=== PATIENT | female | born 1995 | race Caucasian/White ===

== ENCOUNTER 2019-01-05 14:25 | Emergency (ER) | payer MEDICAID ==
[~2019-01-05] VITALS: Ht 152.4 cm; Wt 58.9 kg
[~2019-01-05 14:25] MED LIST: CITA10TA8 PO
[2019-01-05 15:49] LABS: BASOPHILS # (AUTO) 0.08 x10^3/uL (0-0.1); BASOPHILS % (AUTO) 1 % (0-1); EOSINOPHILS # (AUTO) 0.06 x10^3/uL (0-0.4); EOSINOPHILS % (AUTO) 1 % (1-7); LYMPHOCYTES # (AUTO) 2.89 x10^3/uL (1-3.4); LYMPHOCYTES % (AUTO) 29 % (22-44); MD NO; MEAN CORPUSCULAR HEMOGLOBIN 29.8 pg (27.0-34.8); MEAN CORPUSCULAR HGB CONC 32.9 g/dL (32.4-35.8); MEAN CORPUSCULAR VOLUME 90.6 fL (80-100); MEAN PLATELET VOLUME 8.5 fL (7.4-10.4); MONOCYTES # (AUTO) 0.52 x10^3/uL (0.2-0.8); MONOCYTES % (AUTO) 5 % (2-9); NEUTROPHILS # (AUTO) 6.45 x10^3/uL (1.8-6.8); NEUTROPHILS % (AUTO) 65 % (42-75); PLATELET COUNT 322 x10^3/uL (130-400); RED BLOOD COUNT 4.28 x10^6/uL (3.82-5.3); RED CELL DISTRIBUTION WIDTH 13.5 % (9.6-15.2)
[2019-01-05 15:58] LABS: ALANINE AMINOTRANSFERASE 15 U/L (12-78); ALBUMIN 3.2 g/dL (3.4-5.0); ANION GAP 5 mmol/L (5-15); CALCIUM 8.5 mg/dL (8.5-10.1); CHLORIDE 107 mmol/L (98-107)
[2019-01-05 16:15] LABS: ALKALINE PHOSPHATASE 60 U/L (45-117); BILIRUBIN,TOTAL 0.5 mg/dL (0.2-1.0); TOTAL PROTEIN 6.9 g/dL (6.4-8.2)
--- NOTE | 2019-01-05 17:31 | NUR ---
PT PRESENTS TO ED WITH VB AND CRAMPING, 14 WEEKS PREGANT. NO PMH. PT ON MONITOR. VSS, CALL LIGHT WITHIN REACH
[2019-01-05 18:32] LABS: MICROSCOPIC NOT IND
--- NOTE | 2019-01-05 18:33 | NUR ---
PT RESTING IN [facility] [place], AWAITING UA RESULTS THEN DC.
[2019-01-05 18:36] VITALS: BP 111/77
[2019-01-05 18:48] LABS: CULTURE INDICATED? NO
--- NOTE | 2019-01-05 19:16 | NUR ---
Patient/Caregiver given discharge instructions and they have confirmed that they understand the instructions. Patient ambulatory with steady gait.
== END 2019-01-05 19:17 | disposition home or self-care (01) ==
LOC: ED 18:20
DX: O20.0 Threatened abortion (principal); Z3A.15 15 weeks gestation of pregnancy
CPT/HCPCS: 36415; 76801; 80053; 81003; 84702; 85025; 86850; 86900; 99284

== ENCOUNTER 2019-06-03 21:49 | Emergency (ER) | payer MEDICAID ==
[~2019-06-03] VITALS: Ht 152.4 cm; Wt 85.8 kg
[2019-06-03 22:00] VITALS: BP 139/76
== END 2019-06-03 22:21 | disposition home or self-care (01) ==
LOC: ED 22:15
DX: O26.893 Other specified pregnancy related conditions, third trimester (principal); M79.672 Pain in left foot; M79.671 Pain in right foot; Z3A.34 34 weeks gestation of pregnancy; Z53.21 Procedure and treatment not carried out due to patient leaving prior to being seen by health care provider

== ENCOUNTER 2020-06-23 22:53 | Emergency (ER) | payer MEDICAID ==
[~2020-06-23] VITALS: Ht 152.4 cm; Wt 59.6 kg
[2020-06-24 00:16] LABS: BASOPHILS % (AUTO) 1 % (0-1); EOSINOPHILS # (AUTO) 0.64 x10^3/uL (0-0.4); EOSINOPHILS % (AUTO) 7 % (1-7); LYMPHOCYTES # (AUTO) 3.66 x10^3/uL (1-3.4); LYMPHOCYTES % (AUTO) 38 % (22-44); MD NO; MEAN CORPUSCULAR HEMOGLOBIN 29.4 pg (27.0-34.8); MEAN CORPUSCULAR HGB CONC 31.8 g/dL (32.4-35.8); MEAN CORPUSCULAR VOLUME 92.5 fL (80-100); MEAN PLATELET VOLUME 9.3 fL (7.4-10.4); MONOCYTES % (AUTO) 7 % (2-9); NEUTROPHILS # (AUTO) 4.63 x10^3/uL (1.8-6.8); NEUTROPHILS % (AUTO) 48 % (42-75); PLATELET COUNT 279 x10^3/uL (130-400); RED BLOOD COUNT 4.59 x10^6/uL (3.82-5.3); RED CELL DISTRIBUTION WIDTH 13.2 % (9.6-15.2)
[2020-06-24 00:28] LABS: ALANINE AMINOTRANSFERASE 22 U/L (12-78); ALBUMIN 3.4 g/dL (3.4-5.0); ANION GAP 6 mmol/L (5-15); CALCIUM 9.1 mg/dL (8.5-10.1); CHLORIDE 107 mmol/L (98-107)
[2020-06-24 00:34] LABS: ALKALINE PHOSPHATASE 88 U/L (45-117); BILIRUBIN,TOTAL 0.5 mg/dL (0.2-1.0); CREATININE 0.92 mg/dL (0.55-1.02); TOTAL PROTEIN 7.4 g/dL (6.4-8.2); TROPONIN I < 0.015 ng/mL (0.000-0.045)
--- NOTE | 2020-06-24 01:12 | NUR ---
PT RESTING IN BED WITH PT FRIEND AT PT SIDE, PT HAS NO WANTS OR NEEDS AT THIS TIME. PT ON MONITOR AND RN WILL CONTINUE TO MONITOR VSS
[2020-06-24] MEDS ORDERED: KETOROLAC 60 MG/2 ML ONE (01:28)
[2020-06-24] MEDS ORDERED: KETOROLAC 60 MG/2 ML IM ONE (01:30)
[2020-06-24 01:51] VITALS: BP 128/65
== END 2020-06-24 01:53 ==
LOC: ED 06-24 01:30
DX: R07.89 Other chest pain (principal); R06.02 Shortness of breath; R50.9 Fever, unspecified; R05 Cough; R00.0 Tachycardia, unspecified
CPT/HCPCS: 36415; 71045; 80053; 84484; 84703; 85025; 85379; 93005; 96372; 99285; J1885